=== PATIENT | female | born 1955 | race Caucasian/White ===

== ENCOUNTER 2016-06-20 14:32 | Emergency (ER) | payer BC, OTHER ==
[~2016-06-20] VITALS: Ht 160 cm; Wt 105.2 kg
[~2016-06-20 14:32] MED LIST: ASPI81TA31 PO; LISI10TA5 PO; METO25TA6 PO
--- NOTE | 2016-06-20 14:45 | NUR ---
DR GEIGER AT THE BEDSIDE FOR EVAL AND EXAM.
[2016-06-20] MEDS ORDERED: ACETAMINOPHEN ES 500 MG TABLET PO ONE (15:45)
[2016-06-20] MEDS ORDERED: ACETAMINOPHEN ES 500 MG TABLET ONE (15:45)
[2016-06-20 15:49] VITALS: BP 145/86
--- NOTE | 2016-06-20 15:49 | NUR ---
Patient discharged to home in stable conditon. Written and verbal after care instructions given. Patient verbalizes understanding of instructions.
== END 2016-06-20 15:50 | disposition home or self-care (01) ==
LOC: ER 14:33
DX: S83.91XA Sprain of unspecified site of right knee, initial encounter (principal); I10 Essential (primary) hypertension; Z85.42 Personal history of malignant neoplasm of other parts of uterus; Z90.710 Acquired absence of both cervix and uterus; Z91.013 Allergy to seafood; Z79.82 Long term (current) use of aspirin; X58.XXXA Exposure to other specified factors, initial encounter; Y93.9 Activity, unspecified; Y99.9 Unspecified external cause status; Y92.9 Unspecified place or not applicable
CPT/HCPCS: 73560; A4663

== ENCOUNTER 2016-10-04 08:27 | Outpatient (CLI) | payer BC, OTHER ==
[~2016-10-04 08:27] MED LIST changes: -LISI10TA5 PO
[2016-10-04 09:41] LABS: BASOPHILS % (AUTO) 0.5 % (0.0-2.0); EOSINOPHILS # (AUTO) 0.2 K/uL (0.0-0.7); EOSINOPHILS % (AUTO) 2.2 % (0.0-7.0); HEMATOCRIT 41.9 % (37-47); HEMOGLOBIN 13.6 G/DL (12.0-16.0); LYMPHOCYTES # (AUTO) 1.9 K/UL (0.8-4.8); LYMPHOCYTES % (AUTO) 27.5 % (20.5-51.5); MEAN CORPUSCULAR HEMOGLOBIN 25.7 UUG (27.0-31.0); MEAN CORPUSCULAR HGB CONC 32 g/dL (32.0-37.0); MEAN CORPUSCULAR VOLUME 79.3 FL (81.0-99.0); MONOCYTES # (AUTO) 0.2 K/UL (0.1-1.30); MONOCYTES % (AUTO) 3.5 % (0.0-11.0); NEUTROPHILS # (AUTO) 4.6 K/UL (1.8-8.9); NEUTROPHILS % (AUTO) 66.3 % (38.5-71.5); PLATELET COUNT (AUTO) 217 K/UL (150-450); RED BLOOD CELL COUNT(AUTO) 5.28 MIL/UL (4.2-5.4); WHITE BLOOD COUNT (AUTO) 6.9 K/UL (4.0-11.2)
[2016-10-04 10:12] LABS: BILIRUBIN,TOTAL 0.5 mg/dL (0.2-1.0); CREATININE 0.9 mg/dL (0.6-1.3); POTASSIUM 3.7 mmol/L (3.5-5.1); TOTAL PROTEIN, SERUM 7.5 g/dL (6.4-8.2)
== END 2016-10-04 23:59 | disposition home or self-care (01) ==
LOC: LAB 08:27
PROVIDERS: ATTEND Family Medicine
DX: Z01.818 Encounter for other preprocedural examination (principal); R94.5 Abnormal results of liver function studies
CPT/HCPCS: 36415; 71020; 85025; 85730

== ENCOUNTER 2017-05-14 07:55 | Outpatient (CLI) | payer BC, OTHER ==
[2017-05-14 08:30] LABS: BASOPHILS # (AUTO) 0.1 K/uL (0.0-8.0); EOSINOPHILS # (AUTO) 0.2 K/uL (0.0-0.7); EOSINOPHILS % (AUTO) 2.5 % (0.0-7.0); HEMATOCRIT 42.4 % (31.2-41.9); HEMOGLOBIN 14.5 g/dL (10.9-14.3); LYMPHOCYTES # (AUTO) 2.1 K/uL (20.0-40.0); LYMPHOCYTES % (AUTO) 29.2 % (20.5-51.5); MEAN CORPUSCULAR HEMOGLOBIN 27.1 uug (24.7-32.8); MEAN CORPUSCULAR HGB CONC 34 g/dL (32.3-35.6); MEAN CORPUSCULAR VOLUME 79.3 fL (75.5-95.3); MONOCYTES # (AUTO) 0.3 K/uL (2.0-10.0); MONOCYTES % (AUTO) 4.3 % (0.0-11.0); NEUTROPHILS # (AUTO) 4.5 K/uL (1.8-8.9); PLATELET COUNT (AUTO) 210 K/uL (179-408); RED BLOOD CELL COUNT(AUTO) 5.35 MIL/uL (3.63-4.92); WHITE BLOOD COUNT (AUTO) 7.1 K/uL (3.8-11.8)
[2017-05-14 08:45] LABS: BILIRUBIN,TOTAL 0.5 mg/dL (0.2-1.0); CREATININE 0.9 mg/dL (0.6-1.3); MAGNESIUM 1.9 mg/dL (1.8-2.4); POTASSIUM 3.8 mmol/L (3.5-5.1); TOTAL PROTEIN, SERUM 7.6 g/dL (6.4-8.2)
[2017-05-14 08:52] LABS: THYROID STIMULATING HORMONE 4.204 mIU/mL (0.358-3.740)
[2017-05-15 10:12] LABS: VIT D, 25-HYDROXY 17.4 ng/mL (30.0-100.0)
[2017-05-15 13:08] LABS: TRIIODOTHYRONINE, FREE 3.3 pg/mL (2.0-4.4)
== END 2017-05-14 23:59 | disposition home or self-care (01) ==
LOC: LAB 07:55
PROVIDERS: ATTEND Family Medicine
DX: E04.1 Nontoxic single thyroid nodule (principal)
CPT/HCPCS: 36415; 82306; 83735; 84443; 84481; 85025

== ENCOUNTER 2017-11-05 12:03 | Day surgery (SDC) | payer BC, OTHER ==
[2017-11-05] MEDS ORDERED: PROPOFOL 200 MG/20 ML BOTTLE IV ONE (12:04)
[2017-11-05 12:37] LABS: *BILIRUBIN,URIN NEGATIVE (NEGATIVE); *BLOOD, URINE NEGATIVE (NEGATIVE); *CLARITY,URINE CLEAR (CLEAR); *COLOR,URINE YELLOW (YELLOW); *KETONES,URINE NEGATIVE (NEGATIVE); *PROTEIN,URINE 1+ (NEGATIVE); *UROBILINOGEN,URINE 0.2 E.U./dl (NORMAL); BASOPHILS % (AUTO) 0.6 % (0.0-2.0); EOSINOPHILS # (AUTO) 0.1 K/uL (0.0-0.7); EOSINOPHILS % (AUTO) 1.7 % (0.0-7.0); HEMATOCRIT 41.3 % (31.2-41.9); LEUKOCYTE ESTERASE ,URINE NEGATIVE (NEGATIVE); LYMPHOCYTES % (AUTO) 25.9 % (20.5-51.5); MEAN CORPUSCULAR HEMOGLOBIN 27.7 uug (24.7-32.8); MEAN CORPUSCULAR HGB CONC 34 g/dL (32.3-35.6); MEAN CORPUSCULAR VOLUME 81.7 fL (75.5-95.3); MONOCYTES # (AUTO) 0.3 K/uL (2.0-10.0); MONOCYTES % (AUTO) 3.7 % (0.0-11.0); NEUTROPHILS # (AUTO) 5.3 K/uL (1.8-8.9); NEUTROPHILS % (AUTO) 68.1 % (38.5-71.5); NITRITE, URINE NEGATIVE (NEGATIVE); PLATELET COUNT (AUTO) 239 K/uL (179-408); RED BLOOD CELL COUNT(AUTO) 5.06 MIL/uL (3.63-4.92); UGLUCOSE NEGATIVE (NEGATIVE); WHITE BLOOD COUNT (AUTO) 7.7 K/uL (3.8-11.8)
[2017-11-05 12:40] LABS: BACTERIA,URINE FEW /HPF (NONE SEEN); MUCUS,URINE MODERATE /LPF (0-FEW); RBC,URINE 0-3 /HPF (0-3); SQUAMOUS EPITHELIAL CELL,UR FEW /HPF (NONE SEEN)
[2017-11-05 12:43] LABS: CREATININE 0.9 mg/dL (0.6-1.3); POTASSIUM 3.7 mmol/L (3.5-5.1)
[2017-11-05 12:49] LABS: BILIRUBIN,TOTAL 0.7 mg/dL (0.2-1.0); TOTAL PROTEIN, SERUM 7.5 g/dL (6.4-8.2)
== END 2017-11-05 15:45 | disposition home or self-care (01) ==
LOC: DS 12:03
PROVIDERS: ATTEND Internal Medicine Gastroenterology
DX: Z12.11 Encounter for screening for malignant neoplasm of colon (principal); K64.8 Other hemorrhoids; Z80.0 Family history of malignant neoplasm of digestive organs; K29.50 Unspecified chronic gastritis without bleeding; E66.01 Morbid (severe) obesity due to excess calories; E07.9 Disorder of thyroid, unspecified; E78.00 Pure hypercholesterolemia, unspecified; I10 Essential (primary) hypertension; M19.90 Unspecified osteoarthritis, unspecified site; Z86.010 Personal history of colon polyps; Z90.49 Acquired absence of other specified parts of digestive tract; Z90.710 Acquired absence of both cervix and uterus; Z79.899 Other long term (current) drug therapy; Z83.3 Family history of diabetes mellitus; Z82.49 Family history of ischemic heart disease and other diseases of the circulatory system; Z68.41 Body mass index [BMI] 40.0-44.9, adult
CPT/HCPCS: 36415; 43239; 45378; 71045; 80053; 81001; 85025; 85730; 93005; A4217; A4663; J3490; J7120

== ENCOUNTER 2017-11-20 08:52 | Outpatient (CLI) | payer BC, OTHER ==
[2017-11-21 10:07] LABS: *CELIAC IMMUNOGLOBULIN A 211 mg/dL (87-352)
[2017-11-22 09:07] LABS: *CELIAC DEAMIDATED GLIADIN IGA 4 units (0-19); *CELIAC DEAMIDATED GLIADIN IGG 1 units (0-19)
[2017-11-22 14:06] LABS: *CELIAC T-TRANSGLUTAMINASE IGA <2 U/mL (0-3); *CELIAC T-TRANSGLUTAMINASE IGG <2 U/mL (0-5)
== END 2017-11-20 23:59 | disposition home or self-care (01) ==
LOC: LAB 08:52
PROVIDERS: ATTEND Family Medicine
DX: R80.9 Proteinuria, unspecified (principal); K20.0 Eosinophilic esophagitis
CPT/HCPCS: 82785

== ENCOUNTER 2017-12-04 15:47 | Outpatient (CLI) | payer BC, OTHER | END 2017-12-04 23:59 | disposition home or self-care (01) | LOC: RAD 15:47 | PROVIDERS: ATTEND Family Medicine | DX: K76.0 Fatty (change of) liver, not elsewhere classified (principal); R80.9 Proteinuria, unspecified | CPT/HCPCS: 76770 ==

== ENCOUNTER 2019-11-14 07:54 | Emergency (ER) | payer BC, OTHER ==
[~2019-11-14] VITALS: Ht 165.1 cm; Wt 104.3 kg
[2019-11-14 08:28] LABS: BASOPHILS # (AUTO) 0.1 K/uL (0.0-8.0); BASOPHILS % (AUTO) 0.9 % (0.0-2.0); EOSINOPHILS # (AUTO) 0.1 K/uL (0.0-0.7); EOSINOPHILS % (AUTO) 2.2 % (0.0-7.0); HEMATOCRIT 41.6 % (31.2-41.9); HEMOGLOBIN 14.1 g/dL (10.9-14.3); LYMPHOCYTES # (AUTO) 1.6 K/uL (20.0-40.0); LYMPHOCYTES % (AUTO) 27.5 % (20.5-51.5); MEAN CORPUSCULAR HEMOGLOBIN 27.4 uug (24.7-32.8); MEAN CORPUSCULAR HGB CONC 34 g/dL (32.3-35.6); MEAN CORPUSCULAR VOLUME 81.1 fL (75.5-95.3); MONOCYTES # (AUTO) 0.2 K/uL (2.0-10.0); MONOCYTES % (AUTO) 4.3 % (0.0-11.0); NEUTROPHILS # (AUTO) 3.8 K/uL (1.8-8.9); NEUTROPHILS % (AUTO) 65.1 % (38.5-71.5); PLATELET COUNT (AUTO) 212 K/uL (179-408); RED BLOOD CELL COUNT(AUTO) 5.13 MIL/uL (3.63-4.92); WHITE BLOOD COUNT (AUTO) 5.8 K/uL (3.8-11.8)
[2019-11-14 08:36] LABS: CREATININE 0.8 mg/dL (0.6-1.3); POTASSIUM 4.3 mmol/L (3.5-5.1)
--- NOTE | 2019-11-14 10:36 | NUR ---
Patient discharged to home in stable condition. Written and verbal after care instructions given. Patient verbalizes understanding of instructions. Stressed follow up or return to ER for worsening s/s.
[2019-11-14 10:37] VITALS: BP 132/74
[2019-11-14] MEDS ORDERED: AZITHROMYCIN 250 MG TABLET ONE (10:43)
[2019-11-14] MEDS ORDERED: AZITHROMYCIN 250 MG TABLET PO ONE (10:45)
== END 2019-11-14 10:54 | disposition home or self-care (01) ==
LOC: ER 07:54
DX: R07.89 Other chest pain (principal); J02.9 Acute pharyngitis, unspecified; R79.82 Elevated C-reactive protein (CRP); Z20.828 Contact with and (suspected) exposure to other viral communicable diseases; Z85.42 Personal history of malignant neoplasm of other parts of uterus; Z90.710 Acquired absence of both cervix and uterus; Z90.49 Acquired absence of other specified parts of digestive tract; Z91.013 Allergy to seafood; Z79.82 Long term (current) use of aspirin; Z79.899 Other long term (current) drug therapy
CPT/HCPCS: 36415; 70030-TC; 71045; 85025; 86140; 93005; A4663; Q0144

== ENCOUNTER 2020-11-23 09:11 | Emergency (ER) | payer BC, OTHER ==
[~2020-11-23] VITALS: Ht 165.1 cm; Wt 99.8 kg
--- NOTE | 2020-11-23 09:30 | NUR ---
at bedside for assessment
[2020-11-23] MEDS ORDERED: MECLIZINE HCL 25 MG TABLET PO ONE (09:45)
[2020-11-23] MEDS ORDERED: MECLIZINE HCL 25 MG TABLET ONE (09:55)
[2020-11-23 10:08] LABS: HEMATOCRIT 40.2 % (31.2-41.9); MEAN CORPUSCULAR HEMOGLOBIN 27.6 uug (24.7-32.8); MEAN CORPUSCULAR VOLUME 80.8 fL (75.5-95.3); PLATELET COUNT (AUTO) 207 K/uL (179-408)
[2020-11-23 10:16] LABS: CREATININE 0.8 mg/dL (0.6-1.3); POTASSIUM 3.9 mmol/L (3.5-5.1)
[2020-11-23 10:26] LABS: BILIRUBIN,TOTAL 0.5 mg/dL (0.2-1.0); TOTAL PROTEIN, SERUM 7.2 g/dL (6.4-8.2)
--- NOTE | 2020-11-23 11:14 | NUR ---
Patient states she felt dizzy when turning head upon arrival, patient noted resting at this time, no signs of distress noted
[2020-11-23] MEDS ORDERED: MECL-159 PO (11:19)
--- NOTE | 2020-11-23 11:32 | NUR ---
Patient discharged to home in stable condition. States dizziness is decreased upon discharge. Written and verbal after care instructions given. Patient verbalizes understanding of instructions. Stressed follow up or return to ER for worsening s/s.
[2020-11-23 11:35] VITALS: BP 132/79
== END 2020-11-23 11:29 | disposition home or self-care (01) ==
LOC: ER 09:11
DX: H81.10 Benign paroxysmal vertigo, unspecified ear (principal); R00.1 Bradycardia, unspecified; I10 Essential (primary) hypertension; Z79.82 Long term (current) use of aspirin; Z85.42 Personal history of malignant neoplasm of other parts of uterus; Z90.49 Acquired absence of other specified parts of digestive tract; E78.5 Hyperlipidemia, unspecified; Z90.710 Acquired absence of both cervix and uterus; Z79.899 Other long term (current) drug therapy; Z91.013 Allergy to seafood
CPT/HCPCS: 36415; 70030-TC; 85025; 93005; A4663; J8597

== ENCOUNTER 2021-08-31 11:15 | Outpatient (CLI) | payer BC, OTHER ==
[~2021-08-31 11:15] MED LIST changes: +MECL-159 PO
[2021-09-01] MEDS ORDERED: LEVO100T10 PO (13:25)
[2021-09-01] MEDS ORDERED: ISOS30TA86 PO (13:25)
[2021-09-01] MEDS ORDERED: ATOR10TA PO (13:25)
[2021-09-01] MEDS ORDERED: LOSA50TA39 PO (13:25)
[2021-09-01] MEDS ORDERED: ERGO2500 PO (13:27)
== END 2021-08-31 23:59 | disposition home or self-care (01) ==
LOC: LAB 11:15
PROVIDERS: ATTEND Family Medicine
DX: E04.2 Nontoxic multinodular goiter (principal); E04.1 Nontoxic single thyroid nodule
CPT/HCPCS: 36415; 85610; 85730

== ENCOUNTER 2021-08-31 14:34 | Inpatient (IN) | payer BC, OTHER ==
[~2021-08-31] VITALS: Ht 165.1 cm; Wt 109.9 kg
--- NOTE | 2021-08-31 14:35 | NUR ---
Pt brought to ER via gurney from radiology dept post rapid response. Pt had onset of vertigo during a biopsy. Pt placed in hallway [facility] the ER is saturated. spoke with the radiologist via telephone.
[2021-08-31] MEDS ORDERED: PROCHLORPERAZINE MALEATE 5 MG TABLET PO ONE (15:00)
[2021-08-31] MEDS ORDERED: MECLIZINE HCL 25 MG TABLET PO ONE (15:00)
--- NOTE | 2021-08-31 15:10 | NUR ---
Pt moved to room 4A, EKG done, blood specimens drawn by delicatessen department manager.
[2021-08-31 15:15] LABS: HEMATOCRIT 39.7 % (31.2-41.9); MEAN CORPUSCULAR HEMOGLOBIN 27.4 uug (24.7-32.8); MEAN CORPUSCULAR VOLUME 79.7 fL (75.5-95.3); PLATELET COUNT (AUTO) 203 K/uL (179-408)
[2021-08-31] MEDS ORDERED: MECLIZINE HCL 25 MG TABLET ONE (15:15)
[2021-08-31] MEDS ORDERED: PROCHLORPERAZINE MALEATE 5 MG TABLET ONE ×2 (15:15→15:16)
[2021-08-31 15:21] LABS: CARBON DIOXIDE 31 mmol/L (21-32); CHLORIDE 105 mmol/L (98-107); CREATININE 0.8 mg/dL (0.6-1.3); GLUCOSE 108 mg/dL (74-106); POTASSIUM 3.8 mmol/L (3.5-5.1); UREA NITROGEN, BLOOD 15 mg/dL (7-18)
--- NOTE | 2021-08-31 16:21 | NUR ---
Pt states feeling less dizzy, but her eyes are uncomfortable.
--- NOTE | 2021-08-31 17:03 | NUR ---
Patient is resting comfortably in bed with eyes closed, NAD noted.
--- NOTE | 2021-08-31 17:56 | NUR ---
Assissted pt to sit up in bed, pt states feeling dizzy agian. Dr Hsu aware of pt's dizziness. Pt lying back in Bed w/ both eyes closed for comfort.
[2021-08-31] MEDS ORDERED: ONDANSETRON 4 MG/2 ML VIAL IV PRN (18:30)
[2021-08-31] MEDS ORDERED: ACETAMINOPHEN 325 MG TABLET PO PRN (18:30)
[2021-08-31] MEDS ORDERED: TEMAZEPAM 15 MG CAPSULE PO PRN (18:30)
--- NOTE | 2021-08-31 21:03 | NUR ---
Report given to Dipti YABRRA
--- NOTE | 2021-08-31 22:00 | NUR ---
Admitted a 66 years old female with Dx of Severe Dizziness. Patient AAOx4. In no apparent distress. Still complaining of dizziness upon admission. Will provided Meclizine per order. Sinus lupillo on tele with HR of 55/min. IV site on right hand intact and patent. Routine admission care done. Plan of care initiated. Safety measure initiated and call light within reached.
--- NOTE | 2021-08-31 22:11 | NUR ---
pt taken to room [facility] via [facility] with all belongings.
[2021-08-31] MEDS: MECLIZINE HCL 25 MG TABLET PO PRN (22:26)
[2021-08-31] MEDS: IV 1/2NS 1000 ML 1,000 ML IV PRN (22:27)
[2021-09-01] MEDS: MECLIZINE HCL 25 MG TABLET PO PRN ×2 (06:15→14:51)
[2021-09-01 06:44] LABS: HEMATOCRIT 37.9 % (31.2-41.9); MEAN CORPUSCULAR HEMOGLOBIN 27.7 uug (24.7-32.8); MEAN CORPUSCULAR VOLUME 79.8 fL (75.5-95.3); PLATELET COUNT (AUTO) 210 K/uL (179-408)
--- NOTE | 2021-09-01 07:03 | NUR ---
Slept well during the night. In no apparent distress. Patient reported dizziness is less now. Meclizine provided PRN per order. Sinus lupillo on tele with HR of 53/min. IV site on right hand intact and patent. IVF infusing. Needs attended to and met. Safety measure maintained and call light within reached.
[2021-09-01 07:27] LABS: BILIRUBIN,TOTAL 0.4 mg/dL (0.2-1.0); CREATININE 0.8 mg/dL (0.6-1.3); MAGNESIUM 1.9 mg/dL (1.8-2.4); PHOSPHOROUS 3.9 mg/dL (2.5-4.9); POTASSIUM 3.8 mmol/L (3.5-5.1); TOTAL PROTEIN, SERUM 6.8 g/dL (6.4-8.2)
[2021-09-01 07:48] LABS: THYROID STIMULATING HORMONE 0.787 mIU/mL (0.358-3.740)
[2021-09-01] MEDS: ASPIRIN 81 MG TAB.CHEW PO SCH (10:24)
[2021-09-01 12:24] VITALS: BP 126/81
--- NOTE | 2021-09-01 13:19 | NUR ---
Patient left for MRI at [facility].
[2021-09-01] MEDS ORDERED: ATOR10TA PO (13:25)
[2021-09-01] MEDS ORDERED: ISOS30TA86 PO (13:25)
[2021-09-01] MEDS ORDERED: LEVO100T10 PO (13:25)
[2021-09-01] MEDS ORDERED: LOSA50TA39 PO (13:25)
[2021-09-01] MEDS ORDERED: ERGO2500 PO (13:27)
[2021-09-01 17:26] VITALS: BP 130/80
[2021-09-01 20:00] VITALS: BP_SYST 111; BP_SYST 125; BP_DIAS 62; BP_DIAS 66
[2021-09-01] MEDS: IV 1/2NS 1000 ML 1,000 ML IV PRN (20:09)
[2021-09-01] MEDS ORDERED: ATORVASTATIN 20 MG TABLET PO SCH (21:00)
[2021-09-02] VITALS: BP 120/49
[2021-09-02] MEDS: MECLIZINE HCL 25 MG TABLET PO PRN ×2 (00:20→08:48)
--- NOTE | 2021-09-02 05:41 | NUR ---
Slept throughout the night. Denies pain or SOB. C/o dizziness that is relieved by Meclizine. IV site intact. Safety maintained. Will endorse to day shift.
[2021-09-02] MEDS: ASPIRIN 81 MG TAB.CHEW PO SCH (08:27)
[2021-09-02 11:30] VITALS: BP 107/64
[2021-09-02] MEDS: IV 1/2NS 1000 ML 1,000 ML IV PRN (14:12)
[2021-09-02] MEDS ORDERED: ATOR20TA PO (15:53)
[2021-09-02] MEDS ORDERED: MECL-159 PO (15:53)
[2021-09-02] MEDS ORDERED: PROTEIN SUPPLEMENT (PROSTAT) 30 ML LIQUID PO SCH (17:00)
[2021-09-02] MEDS ORDERED: GLUCERNA SHAKE 237 ML CAN PO SCH (17:00)
[2021-09-02 17:13] VITALS: BP 139/58
--- NOTE | 2021-09-02 17:37 | NUR ---
Patient tolerated care well throughout shift with no signs of distress, pain, or increased dizziness. Patient able to walk around room with minimal episodes of vertigo/dizziness. Patient is discharged from unit, left with patient's son-in-law. IV site removed. ID badge removed. Discharge education provided to patient regarding plans afterwards.
== END 2021-09-02 17:35 | disposition home or self-care (01) | DRG 920 ==
LOC: ER 14:34 → TELE3 21:37
PROVIDERS: ADMIT Internal Medicine; ATTEND Internal Medicine
DX: T81.89XA Other complications of procedures, not elsewhere classified, initial encounter (principal); Z68.41 Body mass index [BMI] 40.0-44.9, adult; H81.10 Benign paroxysmal vertigo, unspecified ear; I10 Essential (primary) hypertension; E06.3 Autoimmune thyroiditis; E66.9 Obesity, unspecified; E78.5 Hyperlipidemia, unspecified; Z20.822 Contact with and (suspected) exposure to COVID-19; Z90.49 Acquired absence of other specified parts of digestive tract; Z90.710 Acquired absence of both cervix and uterus; Z85.42 Personal history of malignant neoplasm of other parts of uterus; Z98.890 Other specified postprocedural states; Y84.8 Other medical procedures as the cause of abnormal reaction of the patient, or of later complication, without mention of misadventure at the time of the procedure; Y92.89 Other specified places as the place of occurrence of the external cause
CPT/HCPCS: 36415; 70450; 70551; 83550; 83735; 84100; 84443; 84484; 85025; 93005; 93880; A4663; G0378; J2405; J8499; J8597

== ENCOUNTER 2022-02-21 21:30 | Emergency (ER) | payer BC, OTHER ==
[~2022-02-21] VITALS: Ht 165.1 cm; Wt 105.2 kg
[~2022-02-21 21:30] MED LIST changes: -FURO-152 PO; -NAPR-1164 PO
--- NOTE | 2022-02-21 21:53 | NUR ---
Seen and examined by Dr. Dasilva
[2022-02-21 22:23] LABS: HEMATOCRIT 37.4 % (31.2-41.9); MEAN CORPUSCULAR HEMOGLOBIN 27.3 uug (24.7-32.8); MEAN CORPUSCULAR VOLUME 81.1 fL (75.5-95.3); PLATELET COUNT (AUTO) 203 K/uL (179-408)
[2022-02-21 22:32] LABS: POTASSIUM 3.9 mmol/L (3.5-5.1)
--- NOTE | 2022-02-21 22:37 | NUR ---
sent urine to lab
[2022-02-21 22:44] LABS: *BILIRUBIN,URIN NEGATIVE (NEGATIVE); *CLARITY,URINE CLEAR (CLEAR); *COLOR,URINE YELLOW (YELLOW); *KETONES,URINE NEGATIVE (NEGATIVE); *UROBILINOGEN,URINE 0.2 E.U./dl (NORMAL); LEUKOCYTE ESTERASE ,URINE NEGATIVE (NEGATIVE); NITRITE, URINE NEGATIVE (NEGATIVE); PH,URINE 5.5 (5.0-8.0); UGLUCOSE NEGATIVE (NEGATIVE)
[2022-02-21 22:45] LABS: BILIRUBIN,DIRECT 0.1 mg/dL (0.0-0.2); BILIRUBIN,TOTAL 0.4 mg/dL (0.2-1.0); TOTAL PROTEIN, SERUM 7.3 g/dL (6.4-8.2)
[2022-02-21 22:47] LABS: *BLOOD, URINE TRACE (NEGATIVE)
[2022-02-21 22:48] LABS: BACTERIA,URINE NONE SEEN /HPF (NONE SEEN); RBC,URINE 0-3 /HPF (0-3); SQUAMOUS EPITHELIAL CELL,UR FEW /HPF (NONE SEEN); WBC,URINE 0-3 /HPF (0-3)
[2022-02-22] MEDS ORDERED: FURO-152 PO (00:33)
[2022-02-22] MEDS ORDERED: NAPR-1164 PO (00:33)
[2022-02-22 00:37] VITALS: BP 120/80
== END 2022-02-22 00:38 | disposition home or self-care (01) ==
LOC: ER 21:30
DX: R60.0 Localized edema (principal); I80.252 Phlebitis and thrombophlebitis of left calf muscular vein; E78.00 Pure hypercholesterolemia, unspecified; Z85.42 Personal history of malignant neoplasm of other parts of uterus; Z90.710 Acquired absence of both cervix and uterus; E06.3 Autoimmune thyroiditis
CPT/HCPCS: 36415; 71045; 85025; 93005; A4663

== ENCOUNTER → 2022-02-21 | Outpatient (CLI) | payer BC, OTHER ==
[~2022-02-21] MED LIST changes: +ATOR20TA PO; +ERGO2500 PO; +FURO-152 PO; +ISOS30TA86 PO; +LEVO100T10 PO; -METO25TA6 PO; +NAPR-1164 PO
== END | disposition home or self-care (01) ==
LOC: LAB 12:04
PROVIDERS: ATTEND Family Medicine
DX: M17.11 Unilateral primary osteoarthritis, right knee (principal); M25.861 Other specified joint disorders, right knee; M79.605 Pain in left leg; M79.604 Pain in right leg
CPT/HCPCS: 73562

== ENCOUNTER 2022-08-07 08:27 | Outpatient (CLI) | payer BC, OTHER ==
[~2022-08-07 08:27] MED LIST changes: +FURO-152 PO; +NAPR-1164 PO
[2022-08-07 09:19] LABS: HEMATOCRIT 40.6 % (31.2-41.9); MEAN CORPUSCULAR HEMOGLOBIN 27.3 uug (24.7-32.8); MEAN CORPUSCULAR VOLUME 80.6 fL (75.5-95.3); PLATELET COUNT (AUTO) 225 K/uL (179-408)
[2022-08-07 09:36] LABS: BILIRUBIN,TOTAL 0.5 mg/dL (0.2-1.0); CREATININE 0.7 mg/dL (0.6-1.3); TOTAL PROTEIN, SERUM 7.6 g/dL (6.4-8.2)
[2022-08-07 10:03] LABS: THYROID STIMULATING HORMONE 0.65 mIU/mL (0.358-3.740)
[2022-08-08 12:07] LABS: CORTISOL AM 1.1 ug/dL (6.2-19.4)
[2022-08-11 03:06] LABS: *METHANEPHERINES PLASMA 52.3 pg/mL (0.0-88.0); *NORMETHANEPHERINES PLASMA 141.7 pg/mL (0.0-285.2)
== END 2022-08-07 23:59 | disposition home or self-care (01) ==
LOC: LAB 08:27
PROVIDERS: ATTEND Internal Medicine Endocrinology, Diabetes & Metabolism
DX: I10 Essential (primary) hypertension (principal); E03.9 Hypothyroidism, unspecified; R19.09 Other intra-abdominal and pelvic swelling, mass and lump
CPT/HCPCS: 36415; 82088; 82533; 84244; 84443; 85025

== ENCOUNTER 2023-03-13 07:56 | Emergency (ER) | payer BC, OTHER ==
[~2023-03-13] VITALS: Ht 165.1 cm; Wt 108.9 kg
[2023-03-13 08:49] LABS: BASOPHILS % (AUTO) 0.5 % (0.0-2.0); EOSINOPHILS # (AUTO) 0.1 K/uL (0.0-0.7); EOSINOPHILS % (AUTO) 2.7 % (0.0-7.0); HEMATOCRIT 38.4 % (31.2-41.9); HEMOGLOBIN 12.7 g/dL (10.9-14.3); LYMPHOCYTES # (AUTO) 1.2 K/uL (0.8-4.8); LYMPHOCYTES % (AUTO) 22.3 % (20.5-51.5); MEAN CORPUSCULAR HEMOGLOBIN 26.4 uug (24.7-32.8); MEAN CORPUSCULAR HGB CONC 33 g/dL (32.3-35.6); MONOCYTES # (AUTO) 0.2 K/uL (0.1-1.30); NEUTROPHILS # (AUTO) 3.8 K/uL (1.8-8.9); NEUTROPHILS % (AUTO) 70.5 % (38.5-71.5); PLATELET COUNT (AUTO) 197 K/uL (179-408); RED CELL DISTRIBUTION WIDTH 14.9 % (12.3-17.7); WHITE BLOOD COUNT (AUTO) 5.4 K/uL (3.8-11.8)
[2023-03-13 08:58] LABS: CALCIUM 9.7 mg/dL (8.5-10.1); CREATININE 0.7 mg/dL (0.6-1.3)
[2023-03-13] MEDS ORDERED: LORA0.5T48 PO (09:14)
[2023-03-13 09:19] LABS: DIFFERENTIAL COMMENT 1
[2023-03-13 09:34] VITALS: BP 146/80; O2SAT 98
== END 2023-03-13 09:34 | disposition home or self-care (01) ==
LOC: ER 07:56
DX: F41.9 Anxiety disorder, unspecified (principal); E66.9 Obesity, unspecified; I10 Essential (primary) hypertension; Z68.30 Body mass index [BMI] 30.0-30.9, adult; E78.00 Pure hypercholesterolemia, unspecified; Z90.49 Acquired absence of other specified parts of digestive tract; Z79.82 Long term (current) use of aspirin; Z79.899 Other long term (current) drug therapy; Z91.018 Allergy to other foods
CPT/HCPCS: 36415; 84484; 85025; 93005; A4606; A4663

== ENCOUNTER 2023-09-29 20:02 | Emergency (ER) | payer BC, OTHER ==
[~2023-09-29] VITALS: Ht 165.1 cm; Wt 108.9 kg
[~2023-09-29 20:02] MED LIST changes: +LORA0.5T48 PO
[2023-09-29 20:36] LABS: BASOPHILS % (AUTO) 0.6 % (0.0-2.0); EOSINOPHILS # (AUTO) 0.2 K/uL (0.0-0.7); EOSINOPHILS % (AUTO) 2.5 % (0.0-7.0); HEMATOCRIT 38.8 % (31.2-41.9); HEMOGLOBIN 12.7 g/dL (10.9-14.3); LYMPHOCYTES % (AUTO) 25.9 % (20.5-51.5); MEAN CORPUSCULAR HEMOGLOBIN 26.1 uug (24.7-32.8); MEAN CORPUSCULAR HGB CONC 33 g/dL (32.3-35.6); MEAN CORPUSCULAR VOLUME 79.5 fL (75.5-95.3); MONOCYTES # (AUTO) 0.4 K/uL (0.1-1.30); MONOCYTES % (AUTO) 5.2 % (0.0-11.0); NEUTROPHILS # (AUTO) 5.1 K/uL (1.8-8.9); NEUTROPHILS % (AUTO) 65.8 % (38.5-71.5); PLATELET COUNT (AUTO) 233 K/uL (179-408); RED BLOOD CELL COUNT(AUTO) 4.88 MIL/uL (3.63-4.92); RED CELL DISTRIBUTION WIDTH 14.5 % (12.3-17.7); WHITE BLOOD COUNT (AUTO) 7.8 K/uL (3.8-11.8)
[2023-09-29] MEDS ORDERED: KETOROLAC TROMETHAMINE 30 MG INJ ONE (20:54)
[2023-09-29] MEDS: KETOROLAC TROMETHAMINE 30 MG INJ IM ONE (21:03)
[2023-09-29 21:20] LABS: CALCIUM 9.6 mg/dL (8.5-10.1); CREATININE 0.8 mg/dL (0.6-1.3); POTASSIUM 3.7 mmol/L (3.5-5.1)
[2023-09-29 21:26] LABS: DIFFERENTIAL COMMENT 1
[2023-09-29 21:31] LABS: ALBUMIN 3.9 g/dL (3.4-5.0); BILIRUBIN,DIRECT 0.1 mg/dL (0.0-0.2); BILIRUBIN,TOTAL 0.4 mg/dL (0.2-1.0); TOTAL PROTEIN, SERUM 7.6 g/dL (6.4-8.2)
[2023-09-29 21:34] LABS: *BILIRUBIN,URIN NEGATIVE (NEGATIVE); *BLOOD, URINE NEGATIVE (NEGATIVE); *CLARITY,URINE CLEAR (CLEAR); *COLOR,URINE YELLOW (YELLOW); *KETONES,URINE NEGATIVE (NEGATIVE); *PROTEIN,URINE NEGATIVE (NEGATIVE); *UROBILINOGEN,URINE 0.2 E.U./dl (NORMAL); LEUKOCYTE ESTERASE ,URINE TRACE (NEGATIVE); NITRITE, URINE NEGATIVE (NEGATIVE); PH,URINE 5.5 (5.0-8.0); UGLUCOSE NEGATIVE (NEGATIVE)
[2023-09-29 21:51] LABS: RBC,URINE 0-3 /HPF (0-3); WBC,URINE 20-50 /HPF (0-3)
[2023-09-29 21:52] LABS: BACTERIA,URINE MODERATE /HPF (NONE SEEN); SQUAMOUS EPITHELIAL CELL,UR MANY /HPF (NONE SEEN)
[2023-09-29] MEDS ORDERED: CEFTRIAXONE 1 G VIAL ONE (22:41)
[2023-09-29] MEDS ORDERED: LIDOCAINE HCL 1% 20 ML VIAL ONE (22:41)
[2023-09-29] MEDS ORDERED: CEFD300C3 PO (22:42)
[2023-09-29] MEDS: CEFTRIAXONE 1 G VIAL IM ONE (22:57)
[2023-09-29 23:07] VITALS: BP 141/81; TEMP 98; O2SAT 97
== END 2023-09-29 23:07 | disposition home or self-care (01) ==
LOC: ER 20:03
DX: N39.0 Urinary tract infection, site not specified (principal); E78.5 Hyperlipidemia, unspecified; Z90.710 Acquired absence of both cervix and uterus; Z91.013 Allergy to seafood; Z79.82 Long term (current) use of aspirin; Z79.899 Other long term (current) drug therapy
CPT/HCPCS: 99285; 74176; 80076; 80048; 81001; 83690; 85025; 36415; 96372 ×2; J0696; J1885; J3490; A4606; A4663